=== PATIENT | male | born 1990 | race Caucasian/White ===

== ENCOUNTER 2017-05-25 19:12 | Emergency (ER) | payer OTHER ==
[~2017-05-25] VITALS: Ht 177.8 cm; Wt 102.7 kg
[2017-05-25] MEDS ORDERED: ASPIRIN 81 MG TABLET CHEW ONE (19:43)
[2017-05-25 19:53] LABS: HEMATOCRIT 47.1 % (39.2-51.8); HEMOGLOBIN 16.2 g/dL (13.7-18.0); WHITE BLOOD COUNT 9.6 x10^3/uL (3.4-10)
[2017-05-25] MEDS ORDERED: ASPIRIN 81 MG TABLET CHEW PO ONE (20:00)
[2017-05-25 20:05] LABS: BLOOD UREA NITROGEN 11 mg/dL (7-18)
[2017-05-25 20:09] LABS: IS PT STATUS REG ER OR PRE ER? YES
[2017-05-25 20:31] VITALS: BP 111/67
== END 2017-05-25 20:33 | disposition home or self-care (01) ==
LOC: ED 20:31
DX: R07.89 Other chest pain (principal)
CPT/HCPCS: 36415; 71010; 80048; 82040; 84484; 85025; 93005; 99285

== ENCOUNTER 2018-04-17 10:52 | Emergency (ER) | payer OTHER ==
[~2018-04-17] VITALS: Ht 177.8 cm; Wt 102.0 kg
[2018-04-17 11:08] VITALS: BP 146/82
== END 2018-04-17 12:18 | disposition home or self-care (01) ==
LOC: ED 12:10
DX: S83.91XA Sprain of unspecified site of right knee, initial encounter (principal); Z87.891 Personal history of nicotine dependence; W10.9XXA Fall (on) (from) unspecified stairs and steps, initial encounter; Y93.89 Activity, other specified; Y92.009 Unspecified place in unspecified non-institutional (private) residence as the place of occurrence of the external cause; Y99.8 Other external cause status
CPT/HCPCS: 29505; 99284

== ENCOUNTER → 2018-05-10 | Outpatient (CLI) | payer OTHER | END | disposition home or self-care (01) | LOC: RAD 17:30 | PROVIDERS: ATTEND Orthopaedic Surgery | DX: S83.281A Other tear of lateral meniscus, current injury, right knee, initial encounter (principal); M22.41 Chondromalacia patellae, right knee; M25.461 Effusion, right knee; X58.XXXA Exposure to other specified factors, initial encounter; Y93.89 Activity, other specified; Y92.89 Other specified places as the place of occurrence of the external cause; Y99.8 Other external cause status ==

== ENCOUNTER 2018-07-21 08:11 | Day surgery (SDC) | payer OTHER ==
[~2018-07-21] VITALS: Ht 177.8 cm; Wt 98.1 kg
[~2018-07-21 08:11] MED LIST: BUPIVACAINE/PF 0.25% ONE; EPINEPHRINE 1 MG/ML, 1ML ONE
[2018-07-21] MEDS ORDERED: LACTATED RINGERS 1,000 ML IV SCH (08:55)
[2018-07-21 08:58] VITALS: BP 142/80
[2018-07-21] MEDS ORDERED: PLEASE ENTER HEIGHT AND WEIGHT MC SCH (09:00)
[2018-07-21] MEDS ORDERED: SCOPOLAMINE PATCH, 1.5MG PATCH.TD72 TD ONE (09:00)
[2018-07-21] MEDS ORDERED: ACETAMINOPHEN 500 MG TABLET PO ONE (09:00)
[2018-07-21] MEDS ORDERED: DIAZEPAM 5 MG TABLET PO ONE (09:00)
[2018-07-21] MEDS ORDERED: FENTANYL PF 250 MCG/5ML ONE (10:09)
[2018-07-21] MEDS ORDERED: MIDAZOLAM 1 MG/ML, 2ML ONE (10:09)
[2018-07-21] MEDS ORDERED: ONDANSETRON 2MG/ML, 2ML ONE (10:13)
[2018-07-21] MEDS ORDERED: DEXAMETHASONE 4 MG/ML, 5ML ONE (10:13)
[2018-07-21] MEDS ORDERED: CEFAZOLIN 1,000 MG ONE (10:13)
[2018-07-21] MEDS ORDERED: PROPOFOL 10 MG/ML, 20ML ONE (10:18)
[2018-07-21] MEDS ORDERED: ROCURONIUM 10 MG/ML,10ML ONE (10:18)
[2018-07-21] MEDS ORDERED: SUCCINYLCHOLINE 20 MG/ML, 10ML ONE (10:18)
[2018-07-21] MEDS ORDERED: NEOSTIGMINE 1 MG/ML, 10ML ONE (10:18)
[2018-07-21] MEDS ORDERED: GLYCOPYRROLATE 0.2MG/1ML, 5ML ONE (10:18)
[2018-07-21] MEDS ORDERED: BUPIVACAINE/PF 0.25% ONE (10:51)
[2018-07-21] MEDS ORDERED: OXYcodone 5 MG/5 ML ORAL.SOL UDC PO PRN (11:00)
[2018-07-21] MEDS ORDERED: hydrALAzine 20 MG/ML, 1ML IV PRN (11:00)
[2018-07-21] MEDS ORDERED: FENTANYL PF 100 MCG/2ML IV PRN (11:00)
[2018-07-21] MEDS ORDERED: MORPHINE SULFATE 4 MG/ML, 1ML IVPush PRN (11:00)
[2018-07-21] MEDS ORDERED: ONDANSETRON 2MG/ML, 2ML IV PRN (11:00)
[2018-07-21] MEDS ORDERED: EPHEDRINE 50 MG/ML, 1ML IVPush PRN (11:00)
[2018-07-21] MEDS ORDERED: ONDANSETRON ODT 8 MG PO PRN (11:00)
[2018-07-21] MEDS ORDERED: ALBUTEROL SULFATE 2.5 MG/3 ML NPPB PRN (11:00)
[2018-07-21] MEDS ORDERED: MIDAZOLAM 1 MG/ML, 2ML IV PRN (11:00)
[2018-07-21] MEDS ORDERED: DIAZEPAM 5 MG/ML, 2ML IVPush PRN (11:00)
[2018-07-21] MEDS ORDERED: LABETALOL 5MG/ML, 20ML IV PRN (11:00)
[2018-07-21] MEDS ORDERED: MEPERIDINE/PF 25MG/0.5ML IVPush PRN (11:00)
[2018-07-21] MEDS ORDERED: HALOPERIDOL 5 MG/ML IV PRN (11:00)
[2018-07-21] MEDS ORDERED: HYDROmorphone 2 MG/ML, 1ML IVPush PRN (11:00)
[2018-07-21] MEDS ORDERED: PROMETHAZINE 25 MG/ML, 1ML IV PRN (11:00)
[2018-07-21] MEDS ORDERED: PROMETHAZINE 12.5 MG SUPP PR PRN (11:00)
== END 2018-07-21 12:50 | disposition home or self-care (01) ==
LOC: OUT 08:11
PROVIDERS: ATTEND Orthopaedic Surgery
DX: S83.282A Other tear of lateral meniscus, current injury, left knee, initial encounter (principal); Z87.891 Personal history of nicotine dependence; Z72.89 Other problems related to lifestyle; Z98.890 Other specified postprocedural states; X58.XXXA Exposure to other specified factors, initial encounter; Y93.89 Activity, other specified; Y92.89 Other specified places as the place of occurrence of the external cause; Y99.8 Other external cause status
CPT/HCPCS: 29881; J0171; J0330; J0690; J1100; J2250; J2405; J2704; J2710; J3010; J3490; J7120